=== PATIENT | female | born 1960 | race Caucasian/White ===

== ENCOUNTER 2018-05-28 07:38 | Day surgery (SDC) | payer BC ==
[2018-05-22 11:36] LABS: BASOPHILS % (AUTO) 0.3 % (0-1); EOSINOPHILS # (AUTO) 0.7 X10'3 (0-0.9); EOSINOPHILS % (AUTO) 6.7 % (0-6); LYMPHOCYTES # (AUTO) 2.7 X10'3 (1.1-4.8); LYMPHOCYTES % (AUTO) 26.9 % (21-51); MEAN CORPUSCULAR HEMOGLOBIN 30.5 PG (27.0-31.0); MEAN CORPUSCULAR HGB CONC 32.9 g/dL (33.0-36.5); MEAN CORPUSCULAR VOLUME 92.6 FL (78-98); MONOCYTES # (AUTO) 0.6 X10'3 (0-0.9); NEUTROPHILS # (AUTO) 5.9 X10'3 (1.8-7.7); NEUTROPHILS % (AUTO) 60.1 % (42-75); PRE OP HEMATOCRIT 41.6 % (35.0-45.0); PRE OP HEMOGLOBIN 13.7 g/dL (12.0-16.0); PRE OP PLATELET COUNT 320 X10'3 (140-440); RED BLOOD COUNT 4.49 X10'6 (4.20-5.60); RED CELL DISTRIBUTION WIDTH 12.4 % (11.5-14.5)
[2018-05-22 11:52] LABS: ALBUMIN 3.6 G/DL (3.4-5.0); ALBUMIN/GLOBULIN RATIO 0.8 (1.1-1.5); ALKALINE PHOSPHATASE 60 IU/L (46-116); BLOOD UREA NITROGEN 30 MG/DL (7-18); CALCIUM 9.8 MG/DL (8.5-10.1); CHLORIDE 101 MMOL/L (99-107); CREATININE 0.91 MG/DL (0.40-0.90); PRE OP ALT 53 U/L (30-65); PRE OP ANION GAP 9 (8-16); PRE OP AST 31 U/L (10-37); PRE OP BILIRUB, TOTAL 0.4 MG/DL (0.0-1.0); PRE OP GLUCOSE 105 MG/DL (70-104); PRE OP POTASSIUM 3.5 MMOL/L (3.4-5.1); PRE OP SODIUM 140 MMOL/L (135-145); TOTAL PROTEIN 8.3 G/DL (6.4-8.2); eGFR 64 ML/MIN
[~2018-05-28] VITALS: Ht 160 cm; Wt 117.5 kg
[2018-05-28] VITALS (8 sets, daily range): BP systolic 95–144; BP diastolic 47–83
[~2018-05-28 07:38] MED LIST: AMLO10TA13 PO; ASPI81TA52 PO; CHLO25TA2 PO; GLIM2TAB2 PO; LISI-600 PO; METF500T PO; NIA500ERT PO; SYN0.025T PO; cefazolin/dext.iso 2gm/50ml 50 ML IV ONE; famotidine 20mg tablet PO ONE; ringers solution, lacted 1,000 ML IV SCH
[2018-05-28] MEDS ORDERED: LIDOcaine 1% (10mg/ml) 2ml vial ONE (07:50)
[2018-05-28] MEDS ORDERED: ASCO500C15 PO (08:28)
[2018-05-28] MEDS ORDERED: BUPIVAcaine/PF 2.5mg/ml (0.25%) 10ml vial ONE (10:07)
[2018-05-28] MEDS ORDERED: ringers solution, lacted 1,000 ML IV SCH (10:14)
[2018-05-28] MEDS ORDERED: morphine 4 MG/ML inj SYRINge IV PRN ×2 (10:15)
[2018-05-28] MEDS ORDERED: proCHLORperazine 10 MG/2 ml inj IV PRN (10:15)
[2018-05-28] MEDS ORDERED: meperidine/PF 25mg/ml syringe IV PRN ×3 (10:15)
[2018-05-28] MEDS ORDERED: ondansetron/PF 4mg/2ml inj IV PRN (10:15)
[2018-05-28] MEDS ORDERED: propofol inj 20 ML IV ONE (10:22)
[2018-05-28] MEDS ORDERED: midazolam 2 mg/2 ml injection ONE (10:22)
[2018-05-28] MEDS ORDERED: fentaNYL/PF 50MCG/1 ML 2ML syringe ONE (10:22)
[2018-05-28] MEDS ORDERED: rocuronium 10mg/ml inj IV ONE (10:27)
[2018-05-28] MEDS ORDERED: neostigmine methylsulfate 1 MG/ML 10ml vial ONE ×2 (11:37→11:43)
--- NOTE | 2018-05-28 11:45 | NUR ---
Received from OR via BED, accompanied by Anesthesiologist DR SANDRA-- and report given by Anesthesiolgist. PATIENT A&OX4, DENIES PAIN, V/S WNL, NEUROVASCULAR CHECKS INTACT, 20G PIV LUE, SCD ON, DRESSING TO RIGHT KNEE CDI.
--- NOTE | 2018-05-28 12:35 | NUR ---
pATIENT A&OX4, DENIES PAIN, V/S WNL, CSM INTACT, DRESSING TO RIGHT KNEE CDI, PIV D/C.. I HAVE REVIEWED D/C INSTRUCTIONS WITH PATIENT AND FAMILY AND THEY HAVE VERBALIZED UNDERSTANDING. PATIENT D/C HOME WITH ALL BELONGINGS AND FAMILY GAVE TRANSPORT HOME.
== END 2018-05-28 12:35 | disposition home or self-care (01) ==
LOC: PAS 07:38
PROVIDERS: ATTEND Orthopaedic Surgery
DX: S83.241A Other tear of medial meniscus, current injury, right knee, initial encounter (principal); E03.9 Hypothyroidism, unspecified; I10 Essential (primary) hypertension; E11.9 Type 2 diabetes mellitus without complications; X58.XXXA Exposure to other specified factors, initial encounter; Y93.89 Activity, other specified; Y92.89 Other specified places as the place of occurrence of the external cause; Y99.8 Other external cause status; Z90.710 Acquired absence of both cervix and uterus; Z90.49 Acquired absence of other specified parts of digestive tract
CPT/HCPCS: 29881; 36415; 80053; 82948; 85025; 93005; A6449; J0690; J2250; J2704; J2710; J3010; J3490; A7000; J7030; J7120

== ENCOUNTER 2020-08-05 14:43 | Emergency (ER) | payer BC ==
[~2020-08-05] VITALS: Ht 157.5 cm; Wt 101.9 kg
[~2020-08-05 14:43] MED LIST changes: +ASCO500C18 PO; -GLIM2TAB2 PO; +GLIM2TAB6 PO; -LISI-600 PO; +LISI20TA28 PO; -cefazolin/dext.iso 2gm/50ml 50 ML IV ONE; -famotidine 20mg tablet PO ONE; -ringers solution, lacted 1,000 ML IV SCH
[2020-08-05] MEDS ORDERED: HYDROcodone/acetaminophen 5mg/325mg tablet PO STA (14:55)
[2020-08-05 16:51] VITALS: BP 152/84
== END 2020-08-05 16:53 | disposition home or self-care (01) ==
LOC: ER 14:44
DX: S00.81XA Abrasion of other part of head, initial encounter (principal); M79.641 Pain in right hand; I10 Essential (primary) hypertension; E11.9 Type 2 diabetes mellitus without complications; Z90.49 Acquired absence of other specified parts of digestive tract; Z90.710 Acquired absence of both cervix and uterus; Z98.890 Other specified postprocedural states; Z90.722 Acquired absence of ovaries, bilateral; Z91.018 Allergy to other foods; Z91.030 Bee allergy status; Z79.899 Other long term (current) drug therapy; W18.39XA Other fall on same level, initial encounter; Y93.89 Activity, other specified; Y92.89 Other specified places as the place of occurrence of the external cause; Y99.8 Other external cause status
CPT/HCPCS: 73130; 99284

== ENCOUNTER 2023-01-10 13:42 | Emergency (ER) | payer MEDICAID ==
[~2023-01-10] VITALS: Ht 160 cm; Wt 105.0 kg
[~2023-01-10 13:42] MED LIST changes: +DEC4T PO; +EPIN0.154 IM; +FAMO-128 PO
[2023-01-10 14:16] VITALS: TEMP 98.7
[2023-01-10] MEDS ORDERED: EPIN0.3P3 IM (14:52)
[2023-01-10 16:15] VITALS: BP 148/63; PULSE 73; RESP 17; O2SAT 93
--- NOTE | 2023-01-10 18:57 | NUR ---
GENERAL INTERNIST AND PHYSICIAN LEADER assessment reviewed by RN, approved by this RN.
== END 2023-01-10 16:15 | disposition home or self-care (01) ==
LOC: ER 13:43
DX: T78.40XA Allergy, unspecified, initial encounter (principal); I10 Essential (primary) hypertension; E11.9 Type 2 diabetes mellitus without complications; Z88.8 Allergy status to other drugs, medicaments and biological substances; Z91.030 Bee allergy status; Z79.899 Other long term (current) drug therapy
CPT/HCPCS: 99282

== ENCOUNTER 2023-06-18 14:13 | Emergency (ER) | payer MEDICAID ==
[~2023-06-18] VITALS: Ht 159.4 cm; Wt 107.6 kg
[~2023-06-18 14:13] MED LIST changes: -DEC4T PO; +EPIN0.3P3 IM
[2023-06-18 14:53] VITALS: TEMP 97.7
[2023-06-18] MEDS ORDERED: FAMO-129 PO (15:54)
[2023-06-18] MEDS ORDERED: PRED20TA PO (15:54)
[2023-06-18] MEDS ORDERED: EPIN0.3P3 IM (15:54)
[2023-06-18] MEDS: dexamethasone sod phosphate 10mg/ml inj IV STA (15:58)
[2023-06-18] MEDS: famotidine/PF 10 mg/ml inj IV ONE (15:58)
[2023-06-18 16:12] VITALS: BP 140/58; PULSE 72; RESP 18; O2SAT 97
== END 2023-06-18 16:23 | disposition home or self-care (01) ==
LOC: ER 14:14
DX: T78.40XA Allergy, unspecified, initial encounter (principal); I10 Essential (primary) hypertension; E11.9 Type 2 diabetes mellitus without complications; E07.9 Disorder of thyroid, unspecified; Z79.899 Other long term (current) drug therapy; Z90.49 Acquired absence of other specified parts of digestive tract
CPT/HCPCS: 96374; 96375; 99284; J1100; J3490

== ENCOUNTER → 2023-09-18 | Outpatient (CLI) | payer BC ==
[~2023-09-18] MED LIST changes: +FAMO-129 PO
== END | disposition home or self-care (01) ==
LOC: RAD 17:16
PROVIDERS: ATTEND Family Medicine
DX: M77.31 Calcaneal spur, right foot (principal); M79.671 Pain in right foot
CPT/HCPCS: 73630

== ENCOUNTER 2024-03-22 08:38 | Outpatient (CLI) | payer BC | END 2024-03-22 23:59 | disposition home or self-care (01) | LOC: US 08:38 | PROVIDERS: ATTEND Registered Nurse | DX: N28.1 Cyst of kidney, acquired (principal); N23 Unspecified renal colic | CPT/HCPCS: 76770 ==